=== PATIENT | female | born 1995 | race Caucasian/White ===

== ENCOUNTER 2017-06-05 04:31 | Emergency (ER) ==
[2017-06-05 04:50] VITALS: BP 141/86; TEMP 97.8; BMI 19.5
[2017-06-05] MEDS ORDERED: ZOFRAN 4 MG/2 ML IVP STA (04:57)
[2017-06-05] MEDS ORDERED: LACTATED RINGERS 1,000 ML IV STA ×2 (04:57→05:25)
--- NOTE | 2017-06-05 05:18 | ED.PDOC ---
General Stated Complaint: Patient states she woke up at 1:30 am tonight vomiting 7-8 times and diarrhea 3-4 times. Tried taking Peptobismal but vomited him up. Time Seen by Physician: 05:15 Mode of Arrival: Walk-In Information Source: Patient Exam Limitations: No limitations Nursing and Triage Documentation Reviewed and Agree: Yes Reviewed sepsis parameters & appropriate labs ordered?: No <ALFREDO PETERSEN Last Filed: 06/05/17 05:15> System Inflammatory Response Syndrome: Not Applicable System Inflammatory Response Syndrome: Not Applicable <SANDOVAL WHYTE - Last Filed: 06/05/17 07:35> ED Provider: Dr. SANDOVAL WHYTE Chief Complaint: Nausea/Vomiting Sepsis Protocol: For patient's 13 years and over: Temp is 96.8 and below OR 101 and greater Pulse >90 BPM Resp >20/minute Acutely Altered Mental Status Are patient's symptoms suggestive of a new infection, such as: -Pneumonia -Skin, Soft Tissue -Endocarditis -UTI -Bone, Joint Infection -Implantable Device -Acute Abdominal Infection -Wound Infection -Meningitis -Blood Stream Catheter Infection -Unknown GI Complaint Exam - GI Bleed Complaint/Exam Patient Complains of: Denies: Vomiting blood, Rectal bleeding, Black stools Onset/Duration: 6 hours Symptoms Are: Still present Frequency: every 2 hour Severity: Denies: Blood-streaked stool, Black tarry stool, Bright red blood- rectum, Coffee ground emesis, Hematemesis Location of Pain: Reports: None Character: Reports: Cramping Aggravating: Reports: Food Alleviating: Reports: NPO Associated Signs and Symptoms: Reports: Nausea GI Bleed Risk Factors: Reports: None Recent Colonoscopy: No Recent EGD: No Related Surgical History: Reports: None Abdominal Findings: Present: None Differential Diagnoses: Esophagitis, Gastritis <ALFREDO PETERSEN - Last Filed: 06/05/17 05:15> Review of Systems - Review Of Systems Constitutional: Reports: Malaise, Weakness Eyes: Reports: No symptoms Ears, Nose, Mouth, Throat: Reports: No symptoms Respiratory: Reports: Cough Cardiac: Reports: No symptoms GI: Reports: Nausea, Vomiting : Reports: No symptoms Musculoskeletal: Reports: No symptoms Skin: Reports: No symptoms Neurological: Reports: No symptoms Endocrine: Reports: No symptoms Hematologic/Lymphatic: Reports: No symptoms All Other Systems: Reviewed and Negative <SANDOVAL WHYTE - Last Filed: 06/05/17 07:35> Past Medical History - Past Medical History Previously Healthy: Yes Endocrine: Reports: None Cardiovascular: Reports: None Respiratory: Reports: None Hematological: Reports: None Gastrointestinal: Reports: None Genitourinary: Reports: None Neuro/Psych: Reports: None Musculoskeletal: Reports: None Cancer: Reports: None Last Menstrual Period: 1-2 WEEKS AGO - Social History Smoking Status: Never smoker Hx Substance Use: No Alcohol Screening: None - Immunizations Tetanus Shot up to Date: Yes <ALFREDO PETERSEN - Last Filed: 06/05/17 05:15> - Past Medical History Previously Healthy: Yes Endocrine: Reports: None Cardiovascular: Reports: None Respiratory: Reports: None Hematological: Reports: None Gastrointestinal: Reports: None Genitourinary: Reports: None Neuro/Psych: Reports: None Musculoskeletal: Reports: None Cancer: Reports: None - Surgical History General Surgical History: Reports: None - Family History Family History: Reports: None <PATOSANDOVAL Last Filed: 06/05/17 07:35> Physical Exam - Physical Exam Appearance: Ill-appearing Ill-appearing: Mild Pain Distress: Mild Eyes: JAMI, EOMI, Conjunctiva clear ENT: Ears normal, Nose normal, Oropharynx normal Respiratory: Airway patent, Breath sounds clear, Breath sounds equal, Respirations nonlabored Cardiovascular: RRR, Pulses normal, No rub, No murmur GI/: Soft, Nontender, No masses, Bowel sounds normal, No Organomegaly Musculoskeletal: Normal strength, ROM intact, No edema, No calf tenderness Skin: Warm, Dry, Normal color Neurological: Sensation intact, Motor intact, Reflexes intact, Cranial nerves intact, Alert, Oriented Psychiatric: Affect appropriate, Mood appropriate <PATOSANDOVAL - Last Filed: 06/05/17 07:35> Critical Care Note - Critical Care Note Total Time (mins): 0 <ALFREDO PETERSEN - Last Filed: 06/05/17 05:15> Course - Course Hematology/Chemistry: 06/05/17 05:15 06/05/17 05:15 <SANDOVAL WHYTE - Last Filed: 06/05/17 07:35> - Course Orders, Labs, Meds: Lab Review 06/05/17 06/05/17 06/05/17 05:15 05:15 05:15 WBC 20.60 H RBC 4.74 Hgb 14.4 Hct 41.8 MCV 88.2 MCH 30.4 MCHC 34.4 RDW Coeff of Richie 12.3 Plt Count 199 Immature Gran % (Auto) 0.3 Neut % (Auto) 91.5 Lymph % (Auto) 5.0 L [place] % (Auto) 2.8 Eos % (Auto) 0.2 Baso % (Auto) 0.2 Immature Gran # (Auto) 0.1 Neut # (Auto) 18.8 H Lymph # (Auto) 1.0 [place] # (Auto) 0.6 Eos # (Auto) 0.1 Baso # (Auto) 0.0 Sodium 140 Potassium 3.8 Chloride 107 Carbon Dioxide 22 Anion Gap 14.8 BUN 15 Creatinine 0.75 Estimated GFR (MDRD) 100.00 BUN/Creatinine Ratio 20.00 Glucose 131 H Calcium 9.9 Total Bilirubin 0.3 L AST 21 ALT 29 Alkaline Phosphatase 92 Total Protein 8.1 Albumin 3.8 Globulin 4.3 Albumin/Globulin Ratio 0.88 Amylase Lipase Serum , Qual Negative Urine Color Urine Clarity Urine pH Ur Specific [place] Urine Protein Urine Glucose (UA) Urine Ketones Urine Blood Urine Nitrite Urine Bilirubin Urine Urobilinogen Ur Leukocyte Esterase Urine Microscopic RBC Urine Microscopic WBC Ur Squamous Epith Cells Urine Bacteria Urine Mucus 06/05/17 06/05/17 05:15 05:45 WBC RBC Hgb Hct MCV MCH MCHC RDW Coeff of Richie Plt Count Immature Gran % (Auto) Neut % (Auto) Lymph % (Auto) [place] % (Auto) Eos % (Auto) Baso % (Auto) Immature Gran # (Auto) Neut # (Auto) Lymph # (Auto) [place] # (Auto) Eos # (Auto) Baso # (Auto) Sodium Potassium Chloride Carbon Dioxide Anion Gap BUN Creatinine Estimated GFR (MDRD) BUN/Creatinine Ratio Glucose Calcium Total Bilirubin AST ALT Alkaline Phosphatase Total Protein Albumin Globulin Albumin/Globulin Ratio Amylase 121 H Lipase 12 Serum , Qual Urine Color Yellow Urine Clarity Clear Urine pH 6.5 Ur Specific [place] 1.025 Urine Protein 1+ Urine Glucose (UA) Negative Urine Ketones Negative Urine Blood Trace-intact Urine Nitrite Negative Urine Bilirubin Negative Urine Urobilinogen 0.2 Ur Leukocyte Esterase Negative Urine Microscopic RBC 2-5 Urine Microscopic WBC 2-5 Ur Squamous Epith Cells 5-10 Urine Bacteria 1+ Urine Mucus 1+ Orders Category Date Time Status NPO REMINDER: IMAGING ONCE CARE 04/13/18 07:24 Active ED IV/MEDIPORT/POWERPORT .ONCE EMERGENCY 06/05/17 04:56 Active AMYLASE Stat LAB 06/05/17 05:15 Completed BLOOD CULTURE Stat LAB 06/05/17 07:24 Ordered CBC W/ AUTO DIFF Stat LAB 06/05/17 05:15 Completed COMPREHENSIVE METABOLIC PANEL Stat LAB 06/05/17 05:15 Completed HCG QUALITATIVE [SERUM ] Stat LAB 06/05/17 05:15 Completed LIPASE Stat LAB 06/05/17 05:15 Completed PROCALCITONIN Stat LAB 06/05/17 Ordered URINALYSIS C & S IF INDICATED Stat LAB 06/05/17 05:45 Completed URINE CULTURE Stat LAB 06/05/17 05:45 Received 0.9 % Sodium Chloride [Saline Flush] MEDS 06/05/17 04:56 Active 1 syr IVF PRN PRN Ondansetron HCl/Pf [Zofran 4 mg/2 ml] MEDS 06/05/17 04:57 Discontinued 4 mg IVP ONCE STA Promethazine HCl [Phenergan 25 mg/ml Vial] 25 mg MEDS 06/05/17 05:25 Discontinued 0.9 % Sodium Chloride [Sodium Chloride] 50 ml IV ONCE Ringers Lactated Solution [Lactated Ringers] 1,000 ml MEDS 06/05/17 04:57 Discontinued IV BOLUS Ringers Lactated Solution [Lactated Ringers] 1,000 ml MEDS 06/05/17 05:[address] ABDOMEN/PELVIS W CONTRAST Stat RADS 06/05/17 07:23 Ordered Medications Generic Name Dose Route Start Last Admin Trade Name Freq PRN Reason Stop Dose Admin Sodium Chloride 1 syr 06/05/17 04:56 06/05/17 05:13 Saline Flush IVF 1 syr PRN PRN Administration To flush IV Discontinued Medications Generic Name Dose Route Start Last Admin Trade Name Freq PRN Reason Stop Dose Admin Lactated Ringer's 1,000 mls @ 1,000 mls/hr 06/05/17 04:57 06/05/17 05:13 Lactated Ringers IV 06/05/17 05:56 1,000 mls/hr BOLUS STA Administration Promethazine HCl 25 mg/ Sodium 51 mls @ 75 mls/hr 06/05/17 05:25 Chloride IV 06/05/17 06:05 ONCE STA Lactated Ringer's 1,000 mls @ 1,000 mls/hr 06/05/17 05:25 06/05/17 06:15 Lactated Ringers IV 06/05/17 06:24 1,000 mls/hr BOLUS STA Administration Ondansetron HCl 4 mg 06/05/17 04:57 06/05/17 05:13 Zofran 4 Mg/2 Ml IVP 06/05/17 04:58 4 mg ONCE STA Administration Vital Signs: Temp Pulse Resp BP Pulse Ox 06/05/17 04:32 97.8 F 74 20 141/86 H 98 Departure - Departure Pt referred to PMD for follow-up: Yes IPMP verified?: No <MICHELLEAKOSUAALFREDO - Last Filed: 06/05/17 05:15> - Departure Time of Disposition: 07:30 (i arrived to pt's bedside at 7am and noted that the pt has elevated WBC/AMYLASE. I TOLD THE PT THAT SHE WOULD NEED A CT SCAN OF THE ABDOMEN WITH AND W/O CONTRAST TO MAKE SURE THAT HIGH WBC and slighlty elevated amylase is not due to an impending or active surgical urgency/ emergency. [place] was at bedside as well during this conversation . pt stated due to her out of state insurance she would like to follow up in her state of residence . pt refused imaging knowing the risks involved ) Pt referred to PMD for follow-up: Yes IPMP verified?: No Disposition Discussed With: Patient, Family <SANDOVAL WHYTE - Last Filed: 06/05/17 07:35> - Departure Disposition: AMA Discharge Problem: Gastroenteritis and colitis, viral Instructions: Gastroenteritis (ED) Condition: Good Additional Instructions: Take medications as prescribed Follow up with PCP in 3 days Prescriptions: Dicyclomine HCl [Bentyl] 10 mg PO TID PRN #20 capsule PRN Reason: Abdominal Pain Promethazine HCl [Phenergan Tab] 25 mg PO Q6H PRN #15 tablet PRN Reason: Nausea / Vomiting Allergies/Adverse Reactions: Allergies No Known Drug Allergies Adverse Reaction (Verified 06/05/17 04:40) Home Medications: Ambulatory Orders Control Pill 1 tab PO DAILY 06/05/17 Dicyclomine HCl [Bentyl] 10 mg PO TID PRN #20 capsule 06/05/17 Promethazine HCl [Phenergan Tab] 25 mg PO Q6H PRN #15 tablet 06/05/17
[2017-06-05] MEDS ORDERED: PHENERGAN 25 MG/ML VIAL 25 MG in SODIUM CHLORIDE 50 ML IV STA (05:25)
== END 2017-06-05 07:44 | disposition left against medical advice (07) ==
LOC: ED 04:31
DX: A08.4 Viral intestinal infection, unspecified (principal); D72.829 Elevated white blood cell count, unspecified; R53.1 Weakness
CPT/HCPCS: 36415; 80053; 81001; 82150; 83690; 84703; 85025; 87086; 96361; 96374; 99284

== ENCOUNTER 2017-12-08 14:48 | Outpatient (CLI) | END 2017-12-08 14:49 | disposition home or self-care (01) | LOC: FCC-LAB 14:48 | PROVIDERS: ATTEND Family Medicine | DX: J02.9 Acute pharyngitis, unspecified (principal) | CPT/HCPCS: 87651 ==